=== PATIENT | male | born 1975 | race Caucasian/White ===

== ENCOUNTER → 2019-11-27 20:14 | Outpatient (CLI) | payer OTHER, SELFPAY | PROVIDERS: PCP Family Medicine; Visit Provider Family Medicine | DX: R06.81 Apnea, not elsewhere classified (principal); G47.10 Hypersomnia, unspecified; E66.9 Obesity, unspecified | CPT/HCPCS: 95810 ==

== ENCOUNTER → 2020-01-01 20:04 | Outpatient (CLI) | payer OTHER, SELFPAY ==
[2020-01-01] MEDS: Zolpidem Tartrate 5 MG Tablet PO (21:20)
== END ==
PROVIDERS: PCP Family Medicine; Visit Provider Family Medicine
DX: G47.33 Obstructive sleep apnea (adult) (pediatric) (principal)
CPT/HCPCS: 95811